=== PATIENT | male | born 1980 | race Caucasian/White ===

== ENCOUNTER → 2016-12-01 | Outpatient (CLI) | payer MEDICAID ==
[~2016-12-01] MED LIST: GABAPENTIN100 MG PO; GEMFIBROZIL600 M1 OR; LISINOPRIL 20MG20 MG PO; METFORMIN 500M500 M1 PO; SIMVASTATIN10 MG PO; TOPROL XL 25MG25 MG PO
[2016-12-01 08:27] LABS: HEMOGLOBIN 16.3 g/dL (14.1-18.0); LYMPH # 3.4 K/mm3 (0.7-4.5); LYMPH % 36.6 % (10-50)
[2016-12-01 09:46] LABS: BUN 12 mg/dL (7-18)
[2016-12-01 09:49] LABS: GFR (ESTIMATED) 95 ML/MIN (>60)
== END ==
LOC: LAB 08:20
PROVIDERS: Nurse Practitioner Family
DX: I10 Essential (primary) hypertension (principal); E78.5 Hyperlipidemia, unspecified; R73.9 Hyperglycemia, unspecified

== ENCOUNTER 2016-12-19 12:19 | Emergency (ER) | payer MEDICAID ==
[~2016-12-19] VITALS: Ht 182.9 cm; Wt 90.7 kg
[~2016-12-19 12:19] MED LIST changes: -GABAPENTIN100 MG PO; -METFORMIN 500M500 M1 PO
--- NOTE | 2016-12-19 12:27 | Emergency Room Report ---
History of Present Illness Time Seen by 1220 Presenting Problem in Triage Pt arrived:Walked Presenting Problem:CHEST PAIN FOR TWO DAYS. 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 N Clinical Suspician of Infection? N Mental Status: 1 - Regular (Normal Baseline) Sepsis Risk:Low Sepsis Risk Have you (or family members/close friends) recently traveled outside the [place]? N If Yes, where/when: Have you had exposure to infectious disease within the past month? TB? Other? Specify: Comment The patient complains of chest discomfort. He says he has been having it off and on since last week. He says that last week he had a low-grade chest pain all week long. Yesterday he had a severe chest pain that lasted for a few minutes and then a low-grade chest pain that lasted the rest of the day but went away before he went to bed. He says that he awakened about 7 this morning and had chest pain again which has persisted all day until he received aspirin in the emergency department and it is now gone. He denies shortness of breath. He has had some nausea. His states that he has been sweating frequently and profusely. He says that he awakened from sleep very sweaty. He has hyperlipidemia, diabetes, and hypertension. Family history of heart problems in his mother who is had a cardiac stent. Family history of aneurysms, his father had a cerebral aneurysm and some more distant relatives have had aneurysms of unspecified types. The patient has seen Dr. Martinez, but could not reach him today. He denies having had a previous stress test or angiogram. He says he also had a sore knot on his medial RIGHT thigh yesterday. The knot is gone but it is still sore to touch. ALLERGIES Coded Allergies: Chicken Meat (02/07/12) Shrimp (02/07/12) Home Medications Reported Medications LISINOPRIL (Lisinopril) 20 MG PO BID Gemfibrozil 600 MG OR BID #60 Metformin HCl (Metformin) 500 MG PO BID #60 Gabapentin (Gabapentin 100MG) 100 MG PO QHS #30 History Medical History General CAD? No Angina: No ID: No Hypertension? Yes Hyperlipidemia? Yes CHF? No DVT? No PE? No COPD? No Asthma? No Anemia? No GERD? No Gastric ulcers? No GI Bleed? No Hernia? Yes Thyroid Problems? No Hypothyroidism? No CVA? No Seizures? No Diabetes? No Renal Insuffiency? No End Stage Renal Disease? No UTI? No Stones? Yes BPH? No GB Disease: No Nephritic Syndrome? No Asplenia? No Hepatitis? No Sickle Cell Disease? No Arthritis? No Migraines? No Cataracts? No Glaucoma? No MRSA? No HIV? No TB? No Anxiety? No Depression? No Cancer? No Immunization Hx DT/Tetanus 1-4 YRS Surgical Hx Previous Surgery?Y HERNIA SURG 2004 Social History Smoking Hx Smoker: Never Smoker Tobacco: No Alcohol Alcohol: No Review of Systems All Other Systems Reviewed and Negative Constitutional diaphoresis Respiratory denies shortness of breath Cardiovascular chest pain Physical Exam Vital Signs Vital Signs Date Time Temp Pulse Resp B/P Pulse O2 O2 Flow FiO2 Ox Delivery Rate 12/19 1312 77 16 146/76 97 12/19 1220 98.3 77 22 196/103 99 General Appearance normal appearance, WD/WN Eye Exam - bilateral eye normal exam, bilateral eye PERRL, bilateral eye EOMI Ear, Nose, Throat hearing grossly normal, normal ENT inspection Neck normal inspection, non-tender, supple, full range of motion Respiratory Status Yes: trachea midline, chest symmetrical, non tender chest. No: respiratory distress. Lung Sounds bilateral: normal breath sounds, lungs clear. Cardiovascular normal exam, regular rate/rhythm, no peripheral edema, no gallop, no JVD, no murmur, no rub, normal peripheral pulses Peripheral Pulses Pulses normal Yes Gastrointestinal normal bowel sounds, normal exam, non tender, soft, no organomegaly Extremities normal inspection, no calf tenderness, no pedal edema, tenderness to RIGHT distal medial thigh, no cord. 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 No Results/Orders Laboratory Tests 12/19/16 1500: Creatine Kinase 248, CK-MB (CK-2) Rel Index 1.0, CK and CKMB Interp 2.5, Troponin I < 0.02 12/19/16 1225: Sodium 134 L, Potassium 4.2, Chloride 98, Carbon Dioxide 28, BUN 16, Creatinine 0.9, Estimated Creat Clear 144, Estimated GFR (MDRD) 95, Glucose 276 H, Calcium 9.6, Total Bilirubin 0.3, AST 26, ALT 47, Alkaline Phosphatase 123 H, Creatine Kinase 291, CK-MB (CK-2) Rel Index 1.0, CK and CKMB Interp 3.0, Troponin I < 0.02, Total Protein 8.0, Albumin 3.7, Globulin 4.3 H, Albumin/Globulin Ratio 0.9 L, D-Dimer < 100, WBC 8.7, RBC 5.01, Hgb 15.4, Hct 44.4, MCV 88.6, RDW 12.5 , Plt Count 221, MPV 6.8 L, Gran % 48.7, Gran # 4.2, Lymphocytes % 43.3, Monocytes % 5.5, Eosinophils % 1.3, Basophils % 1.2, Lymphocytes # 3.8, Monocytes # 0.5, Eosinophils # 0.1, Basophils # 0.1, PUBS MCHC 34.8, MCH 30.8 Current Medication Orders Sig/Mariza Start time Last Medication Dose Route Stop Time Status Admin Aspirin 324 MG ONCE ONE 12/19 1230 DC 12/19 PO 12/19 1231 1229 Sodium Chloride 10 ML PRN PRN 12/19 1230 AC IV 12/20 1225 Aspirin 0 .STK-MED ONE 12/19 1225 DC .ROUTE Orders Procedure Date/time Status CARDIAC ENZYMES 12/19 1500 Complete ECHO ADULT 12/19 1412 Active D-DIMER 12/19 1245 Complete ELECTROCARDIOGRAM REQUEST 12/19 1226 Active IV SALINE LOCK 12/19 1226 Active CBC WITH AUTO DIFF 12/19 1226 Complete CARDIAC ENZYMES 12/19 1226 Complete CHEM 12 PROFILE 12/19 1226 Complete 12 LEAD EKG-LEON (INITIAL) 12/19 UNK Active CM/EKG CM/EKG Comments EKG interpreted by Cristo Wilson MD: Rhythm: sinus Rate: 75 Raymond: normal Ectopy: none Conduction: normal ST Segment Changes: none T Wave Changes: none Q Waves: none Borderline criteria for left ventricular hypertrophy. Baseline artifact and wander present, but I consider the EKG adequate for accurate interpretation. No evidence of acute ischemia or injury XRAY/CT/US XRAY/CT/US XRAY chest Comment X-ray interpreted by Cristo Wilson M.D. No infiltrate, pneumothorax, pleural effusion, or wide mediastinum. Progress - 1:40 PM: Case discussed with Shahab for Dr. Martinez. They will see the patient in the emergency department. Patient informed. States that he is starting to develop a very slight discomfort in his LEFT anterior chest. The patient was seen by Miquel in the emergency department. He states that he will order an echocardiogram and a second troponin. If normal he recommends discharge to follow-up as an outpatient for stress test. 3:45 PM: The patient was seen by Dr. LOPEZ in the emergency room. Echocardiogram was performed. Second troponin is normal. Departure Departure Disposition DC Home or Self Care(routine) Clinical Impression Primary Impression: Chest pain, precordial Condition STABLE Referrals Noemi Hodges (Family) Patient Instructions DI for Chest Pain Additional Instructions Call for appointment to see the cardiologists in the office as they have instructed you. Additional instructions for CHEST PAIN: See your physician as soon as possible for further evaluation. Return immediately if worsening chest pain, vomiting, shortness of breath, fever, coughing of blood. ED Critical Care Critical Care No at [id number]
[2016-12-19] MEDS ORDERED: METFORMIN 500M500 M1 PO (12:32)
[2016-12-19] MEDS ORDERED: GABAPENTIN100 MG PO (12:33)
[2016-12-19 12:46] LABS: HEMOGLOBIN 15.4 g/dL (14.1-18.0); LYMPH # 3.8 K/mm3 (0.7-4.5); LYMPH % 43.3 % (10-50)
[2016-12-19 13:01] LABS: BUN 16 mg/dL (7-18)
[2016-12-19 13:03] LABS: GFR (ESTIMATED) 95 ML/MIN (>60)
--- NOTE | 2016-12-19 13:14 | RADIOLOGY REPORT PS360 ---
CHEST-PORTABLE COMPARISON: None HISTORY: S pain TECHNIQUE: Oral upright chest FINDINGS: The lung vogel are fairly well-expanded and appear clear of infiltrate. The cardiac silhouette and vascularity are normal and the costophrenic angles are clear. The patient is rather large. IMPRESSION: Grossly negative portable chest
--- NOTE | 2016-12-19 14:23 | CONSULT NOTE ---
Standard Demographics Patient Demo Date of Consultation: 12/19/16 Referring Provider: Cristo Wilson MD Reason for Consultation: chest pain PRIMARY DIAGNOSIS: chest pain Problem list Problem list: 1. Hyperlipidemia 2. DM, recently started on Metformin 3. FH of ASHD in mother and aneurysms in other family members 4. Hypertension History of present illness: History of present illness: 36-year-old white male with onset of chest discomfort yesterday while working. He stopped working with some continuation of the chest pain throughout the evening. Symptoms seem to resolve overnight. This a.m. symptoms recurred with some nausea and diaphoresis which were alarming to the patient. He came to the emergency department for further evaluation. He was given 4 baby aspirin with resolution of symptoms approximately 20-30 minutes later. Initial Cardiac enzymes are normal. Cardiology asked see the patient for further evaluation and recommendations. Patient recently started on metformin and he continues on lisinopril and gemfibrozil. Past Medical History: General: Hypertension Yes CVA No Seizures No TB No COPD No Asthma No Diabetes No Angina No VT No Hyperlipidemia Yes Cancer No MRSA No GB Disease No Past Surgical HX: Previous Surgery?Y HERNIA SURG 2004 Allergies Coded Allergies: Chicken Meat (02/07/12) Shrimp (02/07/12) Home medications: Reported Medications LISINOPRIL (Lisinopril) 20 MG PO BID Gemfibrozil 600 MG OR BID #60 Metformin HCl (Metformin) 500 MG PO BID #60 Gabapentin (Gabapentin 100MG) 100 MG PO QHS #30 Current Medications: Current Medications Aspirin 324 MG ONCE ONE PO (DC) Sodium Chloride 10 ML PRN PRN IV Aspirin 0 .STK-MED ONE .ROUTE (DC) Immunization HX DT/Tetanus 1-4 YRS AGO Family history Family HX Family Hx Insignificant No Social Hx: Smoking HX Tobacco No Alcohol Alcohol: No Hx of Drug Use Drug Use? No Patien't marital status is Patient's support system is good Review of systems: Constitutional diaphoresis. Respiratory No: no symptoms reported. Cardiovascular see HPI, chest pain Gastrointestinal/Abdominal nausea Genitourinary No: no symptoms reported. Musculoskeletal No: no symptoms reported. Neurological No: no symptoms reported. Exam: Admission Vital Signs: 1ST Vital Signs Result Date Time Pulse Ox 99 12/19 1220 B/P 196/103 12/19 1220 Temp 98.3 12/19 1220 Pulse 77 12/19 1220 Resp 22 12/19 1220 Last Vital Signs: Vital Signs Result Date Time Pulse Ox 97 12/19 1312 B/P 146/76 12/19 1312 Pulse 77 12/19 1312 Resp 16 12/19 1312 Temp 98.3 12/19 1220 Exam General appearance: alert, awake, no acute distress Neck: no carotid bruit, no JVD Cardiovascular: regular rate & rhythm, murmur Respiratory: clear to auscultation Extremities: moves all, no peripheral edema Neuro: alert, intact, oriented Laboratory data: Laboratory Tests 12/19/16 1225: Sodium 134 L, Potassium 4.2, Chloride 98, Carbon Dioxide 28, BUN 16, Creatinine 0.9, Estimated Creat Clear 144, Estimated GFR (MDRD) 95, Glucose 276 H, Calcium 9.6, Total Bilirubin 0.3, AST 26, ALT 47, Alkaline Phosphatase 123 H, Creatine Kinase 291, CK-MB (CK-2) Rel Index 1.0, CK and CKMB Interp 3.0, Troponin I < 0.02, Total Protein 8.0, Albumin 3.7, Globulin 4.3 H, Albumin/Globulin Ratio 0.9 L, D-Dimer < 100, WBC 8.7, RBC 5.01, Hgb 15.4, Hct 44.4, MCV 88.6, RDW 12.5 , Plt Count 221, MPV 6.8 L, Gran % 48.7, Gran # 4.2, Lymphocytes % 43.3, Monocytes % 5.5, Eosinophils % 1.3, Basophils % 1.2, Lymphocytes # 3.8, Monocytes # 0.5, Eosinophils # 0.1, Basophils # 0.1, PUBS MCHC 34.8, MCH 30.8 Plan: Assessment: 1. Recurrent episodes of chest pain. Electrocardiogram is sinus rhythm without acute change. Initial troponin normal. Echo shows normal LVEF and wall motion. 2. Hypertension, elevated initially in the ER. Now much improved. 3. Hyperlipidemia 4. Diabetes mellitus 5. Family history of heart disease Recommendations: 1. GI cocktail and start prilosec. 2. Will obtain a second set of cardiac enzymes and, if normal, then would anticipate discharge from the emergency room with scheduling of outpatient stress test in the near future. 3. We'll start aspirin 81 mg daily. at 1609
[2016-12-19 16:35] VITALS: BP 146/76
--- NOTE | 2016-12-19 16:57 | RADIOLOGY REPORT PS360 ---
PROCEDURE: 2-D M-mode and color Doppler study INDICATIONS FOR THE TEST: Chest pain X COPD Heart Murmur Tobacco Smoking Palpitations Fatigue Syncope Edema HypertensionXDiabetes Mellitus Rheumatic Fever SOB PATINO Obesity HyperlipidemiaX Family History HD Additional History PATIENT INFORMATION HEIGHT: 72 WEIGHT:200 GENDER: Male B/P:132/84 2-D/M-MODE INTERPRETATION: 2-D MEASUREMENTS OBSERVED VALUES IN CMS Right Ventricular Dimension (RVDd) 3.0 Interventricular Septum (Thickness)(IVsd) 1.2 Left Ventricular Internal Dimensions(LVIDd) 5.0 Left Ventricular Posterior Wall (Thickness)(LVPWd) 1.2 Aortic Root 3.8 Aortic Cusp Separation 2.1 Left Atrial Dimensions (LAD) 3.1 2D 1. Left atrium is normal size, left ventricle is normal size, there is mild concentric left ventricular hypertrophy present, visually estimated ejection fraction of 55% with no obvious regional wall motion abnormality. 2. The right atrium is normal size, right ventricle is mildly enlarged with normal contractility. 3. The aortic, mitral, and the tricuspid valve is structurally normal. 4. The pulmonic valve is not well visualized. 5. No significant pericardial effusion noted. DOPPLER INTERROGATION: Doppler interrogation of the aortic ,mitral and tricuspid valvular presence of trace mitral and tricuspid regurgitation, tricuspid regurgitant jet velocity insufficient for calculation of the right ventricular systolic pressure, grade 1 diastolic dysfunction seen without tissue Doppler evidence of raised left atrial pressure. CONCLUSION: 1. Normal left ventricular size, mild concentric left ventricular hypertrophy, visually estimated ejection fraction 55% with no obvious regional wall motion abnormality, grade 1 diastolic dysfunction seen without tissue Doppler evidence of raised left atrial pressure. 2. Mildly enlarged right ventricle with normal contractility. 3. Trace mitral and tricuspid regurgitation. 4. No significant pericardial effusion noted.
== END 2016-12-19 16:36 | disposition home or self-care (01) ==
LOC: ER 12:19
PROVIDERS: Emergency Medicine
DX: R07.2 Precordial pain (principal); I10 Essential (primary) hypertension

== ENCOUNTER → 2017-06-12 | Outpatient (CLI) | payer MEDICAID ==
--- NOTE | 2017-06-12 21:20 | RADIOLOGY REPORT PS360 ---
CERVICAL SPINE 4 OR 5 VIEWS COMPARISON: None HISTORY: Generalized neck pain TECHNIQUE: AP lateral and oblique views and spot view of the odontoid FINDINGS: There is normal curvature and alignment. All cervical vertebrae appear intact and disc spaces are well maintained throughout. Oblique films show normal neural foramina bilaterally. The prevertebral soft tissues are normal and the odontoid is normal. IMPRESSION: Negative cervical spine
--- NOTE | 2017-06-12 21:46 | RADIOLOGY REPORT PS360 ---
[id number] VIEWS COMPARISON: Right shoulder 10/06/2015 HISTORY: Acute right shoulder pain TECHNIQUE: 3 views right shoulder FINDINGS: The clavicle is intact and the AC joint appears normal. The humeral head and glenoid appear normal. No soft tissue calcifications. IMPRESSION: Negative right shoulder
== END ==
LOC: RAD 16:22
DX: M25.511 Pain in right shoulder (principal); M54.2 Cervicalgia

== ENCOUNTER → 2017-06-28 | Outpatient (CLI) | payer OTHER, MEDICAID ==
[~2017-06-28] MED LIST changes: +GABAPENTIN100 MG PO; +METFORMIN 500M500 M1 PO
[2017-06-28 16:36] LABS: HEMOGLOBIN 16.3 g/dL (14.1-18.0); LYMPH # 4.2 K/mm3 (0.7-4.5); LYMPH % 31.4 % (10-50)
[2017-06-28 18:10] LABS: BUN 11 mg/dL (7-18)
[2017-06-28 19:38] LABS: GFR (ESTIMATED) 94 ML/MIN (>60)
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
== END ==
LOC: RAD 15:11 → LAB 15:11 → RAD 15:15
PROVIDERS: Nurse Practitioner Family
DX: M25.511 Pain in right shoulder (principal); I10 Essential (primary) hypertension; R73.9 Hyperglycemia, unspecified

== ENCOUNTER → 2017-07-24 | Outpatient (CLI) | payer OTHER, MEDICAID ==
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
== END ==
LOC: RAD 08:57
DX: M25.511 Pain in right shoulder (principal); M54.6 Pain in thoracic spine

== ENCOUNTER → 2017-08-09 | Outpatient (CLI) | payer OTHER, MEDICAID ==
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
== END ==
LOC: RAD 08:00
DX: R29.890 Loss of height (principal)